=== PATIENT | female | born 1955 | race Caucasian/White ===

== ENCOUNTER → 2019-11-11 11:27 | Outpatient (CLI) | payer OTHER, SELFPAY ==
--- NOTE | 2019-11-11 | DI.MG.S_ITS ---
BILATERAL DIGITAL DIAGNOSTIC MAMMOGRAM 3D/2D POST LUMPECTOMY: 11/11/2019 CLINICAL: Right breast cancer. Comparison is made to exams dated: 10/06/2018 mammogram - [facility], 12/08/2017 mammogram - [facility], 11/03/2017 mammogram - [facility], and 10/08/2017 mammogram - [facility]. There are scattered fibroglandular elements in both breasts. The right breast has post-operative findings. There are benign calcifications in both breasts that are not significantly changed. No significant masses, calcifications, or other findings are seen in either breast. IMPRESSION: There is no mammographic evidence of malignancy. Recommend continued clinical surveillance and 1 year screening mammogram is recommended. This exam was interpreted at Station ID: [id number]. NOTE: For mammograms, a report in lay terms will be sent to the patient. Approximately 15% of breast malignancies will not be visualized mammographically. In the management of a palpable breast mass, a negative mammogram must not discourage biopsy of a clinically suspicious lesion. Electronically Signed By: Cipriano Balderas M.D. aty/:11/11/2019 16:07:45 copy to: PADMAJA DUNN letter sent: Normal Exam ACR BI-RADS Category 2: Benign Finding(s) 3342F
== END ==
PROVIDERS: Referring Provider Internal Medicine; Visit Provider Internal Medicine
DX: C50.911 Malignant neoplasm of unspecified site of right female breast (principal); R92.1 Mammographic calcification found on diagnostic imaging of breast
CPT/HCPCS: 77066; G0279

== ENCOUNTER 2020-10-15 10:03 | Emergency (ER) | payer OTHER, SELFPAY ==
[2020-10-15 10:10] VITALS: BP 139/85; PULSE 72; RESP 14; TEMP 36.8; O2SAT 98
--- NOTE | 2020-10-15 10:52 | ED.SKABFB ---
HPI - Skin/Abscess/Foreign Bdy General Chief complaint: Skin/Abscess/Foreign Body Stated complaint: thinks Right ring finger is Infected Time Seen by Provider: 10/15/20 10:46 Source: patient Mode of arrival: Ambulatory Limitations: no limitations History of Present Illness HPI narrative: Patient complains of right ring finger pain and swelling/abscess. Burned her finger on the microwave apparatus last Thursday. Drainage started yesterday. Patient is right handed. Patient needs tetanus up-to-date. No fever chills otherwise. Injury abscess is on the lateral aspect of the right ring finger on the lateral finger nail edge. Patient did try draining the abscess yesterday with a pin. MD complaint: abscess/boil Related Data Previous Rx's Medication Instructions Recorded cephalexin 500 mg PO QID #28 cap 10/15/20 Allergies Allergy/AdvReac Type Severity Reaction Status Date / Time No Known Drug Allergies Allergy Verified 10/15/20 10:19 Review of Systems Review of Systems Narrative: GENERAL: Denies chills, fatigue, malaise, fever, sweats. MUSCULOSKELETAL: denies muscle or bony pain SKIN: Denies rash, complains of finger abscess NEUROLOGIC: Denies weakness, numbness ROS Unobtainable: All systems reviewed & are unremarkable except as noted in HPI and below Patient History Social History Smoking Status: Never smoker Smoking Status: Never smoker alcohol intake frequency: 0-2 drinks per day Substance Use Type: does not use Exam Narrative Exam Narrative: GENERAL: in no distress, not toxic not dyspneic HEAD: Normocephalic. EXTREMITIES: No gross deformities. Examination right ring finger. There is a paronychia/abscess at the lateral edge of the fingernail. Diffuse erythema at the finger pad. Erythema does extend proximally short of the PIP joint. Full active range of motion of the MCP and PIP joints. Limited flexion at the D IP joint due to swelling. Light touch intact. NEURO: AOx4. SKIN: Warm and dry PSYCH: Not anxious, is cooperative Initial Vital Signs Initial Vital Signs: Vital Signs Temperature 98.2 F 10/15/20 10:10 Pulse Rate 72 10/15/20 10:10 Respiratory Rate 14 10/15/20 10:10 Blood Pressure 139/85 10/15/20 10:10 Pulse Oximetry 98 10/15/20 10:10 Procedures Abscess I/D I&D #1: Site: other (Right ring) Side (if applicable): right Sedation/analgesia: none Local Anesthetic: lidocaine 2% Amount of anesthesia used (mL): 2 Technique: incised with #11 blade Amount of fluid expressed (mL): 1 Irrigation: Yes Packing used?: none Complications: other (No complications. Able flex extend at the MCP PIP and PIP joints. No pus out of drainage. Bleeding controlled.) Course Course Course Narrative: No new issues during course of stay Orders Ordered: Discontinued Medications Cephalexin HCl (Cephalexin 250 Mg Capsule) 500 mg PO NOW ONE Stop: 10/15/20 10:54 Last Admin: 10/15/20 11:30 Dose: 500 mg Documented by: PRANAY Diphtheria/Tetanus/Acell Pertussis (Tet,Diph,Pertuss(Acell),Vac/Pf 0.5 Ml Syringe) 0.5 ml IM .ONCE ONE Stop: 10/15/20 10:54 Last Admin: 10/15/20 11:30 Dose: 0.5 ml Documented by: PRANAY Reevaluation(s) Reevaluation #1: Feels much better after drainage. Desires discharge home Time: 11:27 Vital Signs Vital signs: Vital Signs - 8 hr 10/15/20 10:10 Temperature 98.2 F Pulse Rate 72 Respiratory Rate 14 Blood Pressure 139/85 Pulse Oximetry 98 MDM - Skin/Abscess/Foreign Bdy Differential Diagnosis Differential diagnosis: Likely abscess of skin or subcutaneous tissue MDM Narrative Medical decision making narrative: Appropriate for discharge home. Not toxic. No imaging indicated. Low suspicion for bony injury or foreign body. Discharge Plan Departure Patient Disposition: Home Clinical Impression: Paronychia of finger Qualifiers: Laterality: right Qualified Code(s): L03.011 - Cellulitis of right finger Instructions: DI for Incision and Drainage of a Skin Abscess, DI for Skin Abscess Activity Restrictions/Additional Instructions[place]. Change dressing twice a day with warm soap and water and then topical antibiotic. Return if worse or if any questions or concerns. Prescription has been [facility] Prescriptions: New cephalexin 500 mg capsule 500 mg PO QID Qty: 28 RF: 0 Referrals: Dony Watson MD [Primary Care Provider] -
[2020-10-15 11:25] VITALS: BP 139/79; PULSE 75; RESP 18; O2SAT 97
[2020-10-15] MEDS: LIDOCAINE 2% INJ MDV 20 ML (11:29)
[2020-10-15] MEDS: cephALEXin 250 MG CAPSULE 500 MG PO (11:30)
[2020-10-15] MEDS: TET,DIPH,PERTUSS(ACELL),VAC/PF 0.5 ML SYRINGE IM (11:30)
== END 2020-10-15 11:43 | disposition home or self-care (01) ==
PROVIDERS: Emergency Provider Emergency Medicine; PCP Internal Medicine
DX: L03.011 Cellulitis of right finger (principal); Z23 Encounter for immunization
CPT/HCPCS: 10060; 87070; 87077; 87147; 87186; 87205; 90471; 99283; 90715

== ENCOUNTER → 2020-11-12 11:02 | Outpatient (CLI) | payer OTHER, SELFPAY ==
--- NOTE | 2020-11-12 | DI.MG.S_ITS ---
BILATERAL DIGITAL SCREENING MAMMOGRAM 3D/2D WITH CAD: 11/12/2020 CLINICAL: Routine screening. Breast cancer Family history of breast cancer. Comparison is made to exams dated: 11/11/2019 mammogram - [facility] and 10/06/2018 mammogram - [facility]. There are scattered fibroglandular elements in both breasts. Current study was also evaluated with a Computer Aided Detection (CAD) system. There is a benign calcification in both breasts. There also are benign post operative findings in the right breast. No significant masses, calcifications, or other findings are seen in either breast. There has been no significant interval change. IMPRESSION: BENIGN There is no mammographic evidence of malignancy. A 1 year screening mammogram is recommended. This exam was interpreted at Station ID: [id number]. NOTE: For mammograms, a report in lay terms will be sent to the patient. Approximately 15% of breast malignancies will not be visualized mammographically. In the management of a palpable breast mass, a negative mammogram must not discourage biopsy of a clinically suspicious lesion. Electronically Signed By: Dony bradley/yonatan:11/12/2020 11:47:11 copy to: PADMAJA DUNN letter sent: Normal Exam ACR BI-RADS Category 2: Benign Finding(s) 3342F
== END ==
PROVIDERS: PCP Family Medicine; Referring Provider Internal Medicine; Visit Provider Internal Medicine
DX: Z12.31 Encounter for screening mammogram for malignant neoplasm of breast (principal); Z85.3 Personal history of malignant neoplasm of breast; Z80.3 Family history of malignant neoplasm of breast
CPT/HCPCS: 77063; 77067

== ENCOUNTER 2021-09-12 11:00 | Emergency (ER) | payer OTHER, SELFPAY ==
[2021-09-12 11:09] VITALS: BP 162/85; PULSE 96; RESP 18; TEMP 37.1; O2SAT 97; BMI 39.4
--- NOTE | 2021-09-12 12:59 | ED.ALLEREA ---
HPI - Allergic Reaction General Chief complaint: Allergic Reaction Stated complaint: Left side of face is swollen Time Seen by Provider: 09/12/21 12:59 Source: patient Mode of arrival: Ambulatory History of Present Illness HPI narrative: Patient is a 65-year-old female with no past medical history who presents today left facial numbness and swelling and new left facial droop. She said this morning she woke up and just felt like her left face was swollen she had a pimple that she popped yesterday inside her left nostril she said she got gross green drainage from it. He has not had any fever or chills. No neck pain is no headaches. she has some mild erythema just inferior her left eye. She has no visual changes. He denies any chest pain shortness breath palpitations. She has no focal deficits besides her face. She has no numbness tingling or weakness. She has no prior history of CVA or CAD. She denies anything new products. She has no difficulty breathing no tongue swelling. Related Data Previous Rx's Medication Instructions Recorded cephalexin 500 mg capsule 500 mg PO QID #28 cap 10/15/20 sulfamethoxazole 800 1 tab PO BID 10 Days #20 tab 09/12/21 mg-trimethoprim 160 mg tablet (Bactrim DS) sulfamethoxazole 800 1 tab PO BID 10 Days #20 tab 09/12/21 mg-trimethoprim 160 mg tablet (Bactrim DS) Allergies Allergy/AdvReac Type Severity Reaction Status Date / Time No Known Drug Allergies Allergy Verified 09/12/21 11:30 Review of Systems Review of Systems Narrative: GENERAL: Denies chills, fatigue, malaise, fever, sweats, travel HEENT: Denies sinus pain, ear pain, sore throat, difficulty swallowing, neck pain RESPIRATORY: Denies dyspnea, cough, wheezing, hemoptysis, sputum. CARDIOVASCULAR: Denies chest pain, palpitations, orthopnea, edema GASTROINTESTINAL: Denies nausea, vomiting, abdominal pain, diarrhea, constipation, melena. : Denies dysuria, frequency, incontinence, hematuria, urinary retention, flank pain. MUSCULOSKELETAL: Denies weakness, joint pain, or bony pain SKIN: See HPI NEUROLOGIC: See HPI PSYCHIATRIC: No concerning psychosocial issues. 12 point review of systems is negative except for those stated above and HPI Patient History Social History Smoking Status: Never smoker Smoking Status: Never smoker alcohol intake frequency: holidays/special occasions only Substance Use Type: does not use Exam Initial Vital Signs Initial Vital Signs: Vital Signs Temperature 98.7 F 09/12/21 11:09 Pulse Rate 96 H 09/12/21 11:09 Respiratory Rate 18 09/12/21 11:09 Blood Pressure 162/85 H 09/12/21 11:09 Pulse Oximetry 97 09/12/21 11:09 GENERAL: Alert well-appearing 65-year-old female and in no acute distress. HEENT: Head atraumatic,EOMI, pupils reactive, left facial droop she is able to close her eyes completely and wrinkle her forehead NOSE: Anterior right septal erythema very tender to the touch no induration CARDIOVASCULAR: Regular rate and rhythm without murmurs, rubs or gallops. RESPIRATORY: Breath sounds equal bilaterally, no wheezes rales or rhonchi. ABDOMEN: Soft, nontender. Normoactive bowel sounds all 4 quadrants. No guarding or rebound. EXTREMITIES: Normal range of motion, no clubbing or edema. Neurovascularly intact NEUROLOGICAL: Alert and oriented x4.Normal gait and speech. Cranial nerves II through XII grossly intact. Good [id number]-[id number], good jbkf-ff-pvvf, strength equal bilaterally, no dysarthria or aphasia, sensation in tact to soft touch bilaterally, no visual changes, left facial droop able to close eyes completely wrinkling of both sides of for head SKIN: Warm, dry, no laceration, no petechiae, no rashes or lesions. Course Orders Ordered: ED Orders 09/12/21 13:09 CT head/brain wo con Stat Urine Drug Screen, Rapid Stat EKG-12 Lead Stat 09/12/21 13:19 Complete Blood Count AUTO DIFF Stat Comprehensive Metabolic Panel Stat Troponin & CK Cardiac Panel Stat Vital Signs Vital signs: Vital Signs - 8 hr 09/12/21 11:09 09/12/21 13:58 09/12/21 13:59 Temperature 98.7 F Pulse Rate 96 H 85 85 Respiratory Rate 18 Blood Pressure 162/85 H 129/76 Pulse Oximetry 97 94 98 09/12/21 14:00 Temperature Pulse Rate 85 Respiratory Rate Blood Pressure Pulse Oximetry 98 MDM - Allergic Reaction Lab Data Result diagrams: 09/12/21 13:19 09/12/21 13:19 Labs: Lab Results 09/12/21 09/12/21 Range/Units 13:19 13:19 WBC 12.2 H (4.5-11.0) X10^3/uL RBC 3.97 L (4.0-5.2) X10^6/uL Hgb 11.4 L (12.0-16.0) g/dL Hct 34.5 L (36-46) % MCV 86.9 (80-100) fL MCH 28.7 (26-34) PG MCHC 33.1 (30-36) % RDW 14.3 (11.6-14.8) % Plt Count 213 (150-400) X10^3/uL Neut % (Auto) 78.1 H (50-75) % Lymph % (Auto) 11.9 L (25-40) % Orange % (Auto) 7.3 (3-14) % Eos % (Auto) 2.2 (2-4) % Baso % (Auto) 0.5 (0-2) % Neut # (Auto) 9500 H (3128-0179) /uL Lymph # (Auto) 1500 (5249-1849) /uL Orange # (Auto) 900 (0-900) /uL Eos # (Auto) 300 (0-450) /uL Baso # (Auto) 100 (0-100) /uL Sodium 138 (137-145) mmol/L Potassium 4.2 (3.4-5.1) mmol/L Chloride 102 (98-107) mmol/L Carbon Dioxide 32 (22-32) mmol/L BUN 17 (7-17) mg/dL Creatinine 0.95 (0.52-1.04) mg/dL Estimated GFR 59.4 L (>60) mL/min BUN/Creatinine Ratio 17.9 (6-22) Glucose 86 (80-110) mg/dL Calcium 9.3 (8.4-10.2) mg/dL Total Bilirubin 0.5 (0.2-1.3) mg/dL AST 24 (14-36) IU/L ALT 17 (<35) IU/L Alkaline Phosphatase 59 (38-126) U/L Total Creatine Kinase 80 (30-135) U/L CK-MB (CK-2) TNP CK-MB (CK-2) Rel Index TNP Troponin I < 0.012 (0.01-0.034) ng/mL Total Protein 6.8 (6.3-8.2) g/dL Albumin 3.8 (3.5-5.0) g/dL Globulin 3.0 (1.7-4.1) g/dL Albumin/Globulin Ratio 1.3 (1.0-2.8) Urine Dip Bedside Urine Glucose Negative Bedside Urine Bilirubin - Negative Bedside Urine Ketone - Negative Urine Specific [place] 1.015 Bedside Urine Occult Blood - Negative Bedside Urine pH 6.5 Bedside Urine Protein - Negative Bedside Urine Urobilinogen +/- 1mg Bedside Urine Nitrite - Negative Bedside Urine Leukocytes - Negative Esterase Imaging Data CT scan - head: Radiologist's Impression: PROCEDURE:? CT HEAD/BRAIN WO CON ? INDICATIONS:? left facial droop ? TECHNIQUE:? Noncontrast 4.5 mm thick angled axial sections acquired from the foramen magnum to the vertex, with coronal and sagittal reformats.? For radiation dose reduction, the following was used:? automated exposure control, adjustment of mA and/or kV according to patient size.? ? COMPARISON:? None. ? FINDINGS:? Image quality:? Excellent.? ? CSF spaces:? Basal cisterns are patent.? No extra-axial fluid collections.? Ventricles are normal in size and shape.? ? Brain:? No midline shift.? No intracranial masses or hemorrhage.? Goldstein-white matter interface is normal.? ? Skull and face:? Calvarium and visualized facial bones are intact, without suspicious lesions.? ? Sinuses:? Visualized sinuses and mastoids are clear.? ? IMPRESSION:? No acute intracranial abnormality. ? ? ECG Data Interpretation: Rhythm rate 86 NC interval 150 QRS [address] changes T-wave inversion MDM Narrative Medical decision making narrative: She does have left nasal abscess near the septum. She does not have any really surrounding erythema or induration. She has obvious left facial droop. Possible Jama's palsy but she is able to close eyes and wrinkle forehead. Possible stroke or TIA however she has no other focal deficits except mild left facial droop. Also possible infection she does have mild leukocytosis of 12 and of probable source of the nose. Unlikely allergic reaction. At this time patient overall appears well. Discussed with her warm compresses will start her on antibiotics and strict return precautions. Discharge Plan Departure Patient Disposition: Home Clinical Impression: Abscess of nasal septum Instructions: DI for Skin Abscess Activity Restrictions/Additional Instructions: *You have been diagnosed with abscess of nose *What to do: At this time continue warm compresses monitor very closely. If you should have any worsening pain swelling redness fever return to the emergency department immediately *Continue to take medications as directed Bactrim 1 tablet twice a day for 10 days--> SENT TO [facility] *Follow up with your primary care provider in 2-3 days or call [phone] *Return to ER if you should have any of the above symptoms also including numbness tingling weakness worsening facial droop or any new, worsening or concerning symptoms Prescriptions: New sulfamethoxazole-trimethoprim [Bactrim DS] 800-160 mg tablet 1 tab PO BID 10 Days Qty: 20 0RF sulfamethoxazole-trimethoprim [Bactrim DS] 800-160 mg tablet 1 tab PO BID 10 Days Qty: 20 0RF No Action cephalexin 500 mg capsule 500 mg PO QID Qty: 28 0RF Referrals: Maren Ramirez DO [Primary Care Provider] -
--- NOTE | 2021-09-12 13:09 | DI.CT.S_ITS ---
PROCEDURE: CT HEAD/BRAIN WO CON INDICATIONS: left facial droop TECHNIQUE: Noncontrast 4.5 mm thick angled axial sections acquired from the foramen magnum to the vertex, with coronal and sagittal reformats. For radiation dose reduction, the following was used: automated exposure control, adjustment of mA and/or kV according to patient size. COMPARISON: None. FINDINGS: Image quality: Excellent. CSF spaces: Basal cisterns are patent. No extra-axial fluid collections. Ventricles are normal in size and shape. Brain: No midline shift. No intracranial masses or hemorrhage. Goldstein-white matter interface is normal. Skull and face: Calvarium and visualized facial bones are intact, without suspicious lesions. Sinuses: Visualized sinuses and mastoids are clear. IMPRESSION: No acute intracranial abnormality. Dictated by: Elliott Alba M.D. on 09/12/2021 at 13:45 Approved by: Elliott Alba M.D. on 09/12/2021 at 13:47
[2021-09-12 13:51] LABS: Add Manual Diff / Slide Review NO; Basophils Absolute Auto 100 /uL (0-100); Basophils Percent Auto 0.5 % (0-2); Eosinophils Absolute Auto 300 /uL (0-450); Eosinophils Percent Auto 2.2 % (2-4); Hematocrit 34.5 % (36-46); Hemoglobin 11.4 g/dL (12.0-16.0); Lymphocytes Absolute Auto 1500 /uL (1100-4500); Lymphocytes Percent Auto 11.9 % (25-40); Mean Corpuscular HGB Conc 33.1 % (30-36); Mean Corpuscular Hemoglobin 28.7 PG (26-34); Mean Corpuscular Volume 86.9 fL (80-100); Monocytes Absolute Auto 900 /uL (0-900); Monocytes Percent Auto 7.3 % (3-14); Neutrophils Absolute Auto 9500 /uL (1500-7000); Neutrophils Percent Auto 78.1 % (50-75); Platelet Count 213 X10^3/uL (150-400); Red Blood Cell Count 3.97 X10^6/uL (4.0-5.2); Red Cell Distribution Width 14.3 % (11.6-14.8); White Blood Cell Count 12.2 X10^3/uL (4.5-11.0)
[2021-09-12 13:58] VITALS: PULSE 85; O2SAT 94
[2021-09-12 13:59] VITALS: BP 129/76; PULSE 85; O2SAT 98
[2021-09-12 14:00] VITALS: PULSE 85; O2SAT 98
[2021-09-12 14:20] LABS: Alanine Aminotransferase 17 IU/L (<35); Albumin 3.8 g/dL (3.5-5.0); Albumin Globulin Ratio 1.3 (1.0-2.8); Alkaline Phosphatase 59 U/L (38-126); Aspartate Aminotransferase 24 IU/L (14-36); BUN Creatinine Ratio 17.9 (6-22); Bilirubin Total 0.5 mg/dL (0.2-1.3); Blood Urea Nitrogen 17 mg/dL (7-17); Calcium 9.3 mg/dL (8.4-10.2); Carbon Dioxide 32 mmol/L (22-32); Chloride 102 mmol/L (98-107); Creatine Kinase 80 U/L (30-135); Estimated Glomerular Filt Rate 59.4 mL/min (>60); Glucose 86 mg/dL (80-110); HEMOLYSIS < 15 (0-50); Potassium 4.2 mmol/L (3.4-5.1); Sodium 138 mmol/L (137-145); Total Protein 6.8 g/dL (6.3-8.2)
[2021-09-12 14:31] LABS: Troponin I < 0.012 ng/mL (0.01-0.034)
== END 2021-09-12 15:08 | disposition home or self-care (01) ==
PROVIDERS: Emergency Provider Emergency Medicine; PCP Family Medicine
DX: J34.0 Abscess, furuncle and carbuncle of nose (principal)
CPT/HCPCS: 36415; 70450; 80053; 81003; 82550; 84484; 85025; 93005; 93010; 99284

== ENCOUNTER → 2021-11-13 11:10 | Outpatient (CLI) | payer OTHER, SELFPAY ==
--- NOTE | 2021-11-13 | DI.MG.S_ITS ---
BILATERAL DIGITAL SCREENING MAMMOGRAM 3D/2D WITH CAD: 11/13/2021 CLINICAL: Routine screening. Personal history of right breast cancer. Family history of breast cancer. Comparison is made to exams dated: 11/12/2020 mammogram, 11/11/2019 mammogram - [facility], and 10/06/2018 mammogram - [facility]. There are scattered fibroglandular elements in both breasts. Current study was also evaluated with a Computer Aided Detection (CAD) system. There is a benign calcification in both breasts. There also are benign post operative findings in the right breast. No significant masses, calcifications, or other findings are seen in either breast. There has been no significant interval change. IMPRESSION: BENIGN There is no mammographic evidence of malignancy. A 1 year screening mammogram is recommended. This exam was interpreted at Station ID: [id number]. NOTE: For mammograms, a report in lay terms will be sent to the patient. Approximately 15% of breast malignancies will not be visualized mammographically. In the management of a palpable breast mass, a negative mammogram must not discourage biopsy of a clinically suspicious lesion. Electronically Signed By: Elliott Alba acr/penrad:11/14/2021 08:45:56 copy to: PADMAJA DUNN letter sent: Normal Exam ACR BI-RADS Category 2: Benign Finding(s) 3342F
== END ==
PROVIDERS: PCP Family Medicine; Referring Provider Internal Medicine; Visit Provider Internal Medicine
DX: Z12.31 Encounter for screening mammogram for malignant neoplasm of breast (principal); Z85.3 Personal history of malignant neoplasm of breast; Z80.3 Family history of malignant neoplasm of breast
CPT/HCPCS: 77063; 77067

== ENCOUNTER 2022-10-30 16:51 | Emergency (ER) | payer MEDICARE, OTHER, SELFPAY ==
[2022-10-30 16:59] VITALS: BP 133/79; PULSE 103; RESP 18; TEMP 37.3; O2SAT 94; BMI 41.1
--- NOTE | 2022-10-30 18:48 | ED_ITS ---
HPI - Eye Problem General Chief complaint: Eye Problems Stated complaint: lt eye pain Time Seen by Provider: 10/30/22 17:50 Source: patient Mode of arrival: Ambulatory History of Present Illness HPI Narrative: Patient is a 67-year-old female history of hypertension who wears contacts presenting today with left eye irritation and contact problem. She reports that she was sitting and felt like her contact was a little bit off but her finger in to move her contact around contact got dislodged eye was irritated. She then thought that she found the contact and was moving something around. She no longer has any eye irritation she is not sure that the contact actually came out. She is having blurry vision. No discharge. Related Data Previous Rx's Medication Instructions Recorded cephalexin 500 mg capsule 500 mg PO QID #28 caps 10/15/20 Allergies Allergy/AdvReac Type Severity Reaction Status Date / Time No Known Drug Allergies Allergy Verified 10/30/22 17:05 Review of Systems Review of Systems ROS Unobtainable: All systems reviewed & are unremarkable except as noted in HPI and below Patient History Social History Smoking Status: Never smoker Smoking Status: Never smoker alcohol intake frequency: 0-2 drinks per day Substance Use Type: does not use Exam Initial Vital Signs Initial Vital Signs: Vital Signs Temperature 99.2 F 10/30/22 16:59 Pulse Rate 103 H 10/30/22 16:59 Respiratory Rate 18 10/30/22 16:59 Blood Pressure 133/79 10/30/22 16:59 Pulse Oximetry 94 10/30/22 16:59 Oxygen Delivery Method Room Air 10/30/22 16:59 GENERAL: Well-appearing, well-nourished and in no acute distress. EYE: EIMI, TONG, left eye is stained with fluorescein no dye uptake no foreign body. Eyelid is inverted for exam. No foreign body is seen. CARDIOVASCULAR: peripheral pulses in tact, cap refill <2 sec RESPIRATORY: No respiratory distress, speaks in full sentences without diffi culty EXTREMITIES: Normal range of motion, no clubbing or edema. Neurovascularly intact NEUROLOGICAL: Cranial nerves II through XII grossly intact. Normal gait and speech. SKIN: Warm, dry, no petechiae, no rashes or lesions. Course Orders Ordered: Discontinued Medications Fluorescein Sodium (Fluorescein 1 Mg Strip) 1 mg EYE-BOTH NOW ONE Stop: 10/30/22 18:48 Last Admin: 10/30/22 19:29 Dose: 1 mg Documented By: MARIA LUISA Proparacaine HCl (Proparacaine 0.5% Ophth Ginger) 1 drops EYE-BOTH NOW ONE Stop: 10/30/22 18:48 Last Admin: 10/30/22 19:04 Dose: 1 box Documented By: AP Vital Signs Vital signs: Vital Signs - 8 hr 10/30/22 16:59 Temperature 99.2 F Pulse Rate 103 H Respiratory Rate 18 Blood Pressure 133/79 Pulse Oximetry 94 Oxygen Delivery Method Room Air MDM - Eye Problem MDM Narrative Medical decision making narrative: Patient is 67-year-old female who presents with left eye pain and irritation. Probable contact dislodgement. I suspect that what she saw was sliding around her eye was probably the contact. I do not see the contact or any other foreign body in her eye. There is no dye uptake or evidence of corneal abrasion. She is reading a book currently with mono vision. She just wanted to make sure contact was out and and there was nothing further. Discharge Plan Departure Patient Disposition: Home Clinical Impression: Acute left eye pain Instructions: DI for Eye Pain Activity Restrictions/Additional Instructions: *You have been diagnosed with left eye pain *What to do: At this time I suspect that the contact has fallen out. I do not see it in your I do not see an abrasion. Keep contact out for tonight may try and wear contacts tomorrow. *Continue to take medications as directed *Follow up with your primary care provider in 2-3 days or call [phone] *Return to ER if you should have increasing pain irritation drainage or any new, worsening or concerning symptoms Prescriptions: No Action cephalexin 500 mg capsule 500 mg PO QID Qty: 28 0RF Referrals: Maren Ramirez DO [Primary Care Provider] - Stand Alone Forms: Patient Portal/API
[2022-10-30] MEDS: PROPARACAINE 0.5% OPHTH SOL 1 DROPS EYE-BOTH (19:04)
[2022-10-30] MEDS: FLUORESCEIN 1 MG STRIP EYE-BOTH (19:29)
== END 2022-10-30 19:30 | disposition home or self-care (01) ==
PROVIDERS: Emergency Provider Emergency Medicine; PCP Family Medicine
DX: H57.12 Ocular pain, left eye (principal)
CPT/HCPCS: 99282

== ENCOUNTER → 2022-11-14 06:55 | Outpatient (CLI) | payer MEDICARE, OTHER, SELFPAY ==
--- NOTE | 2022-11-14 | DI.MG.S_ITS ---
BILATERAL DIGITAL SCREENING MAMMOGRAM 3D/2D WITH CAD: 11/14/2022 CLINICAL: Routine screening. Personal history of right breast cancer. Family history of breast cancer. Comparison is made to exams dated: 11/13/2021 mammogram, 11/12/2020 mammogram, and 11/11/2019 mammogram - [facility]. There are scattered areas of fibroglandular density in both breasts (category b / 25%-50% glandular tissue). Current study was also evaluated with a Computer Aided Detection (CAD) system. There is a benign calcification in both breasts. There also are benign post operative findings in the right breast. No significant masses, calcifications, or other findings are seen in either breast. There has been no significant interval change. IMPRESSION: BENIGN There is no mammographic evidence of malignancy. A 1 year screening mammogram is recommended. This exam was interpreted at Station ID: [id number]. NOTE: For mammograms, a report in lay terms will be sent to the patient. Approximately 15% of breast malignancies will not be visualized mammographically. In the management of a palpable breast mass, a negative mammogram must not discourage biopsy of a clinically suspicious lesion. Electronically Signed By: Mariela davis/yonatan:11/14/2022 12:58:35 copy to: PADMAJA DUNN letter sent: Normal Exam ACR BI-RADS Category 2: Benign Finding(s) 3342F
== END ==
PROVIDERS: PCP Family Medicine; Referring Provider Internal Medicine; Visit Provider Internal Medicine
DX: Z12.31 Encounter for screening mammogram for malignant neoplasm of breast (principal); Z85.3 Personal history of malignant neoplasm of breast; Z80.3 Family history of malignant neoplasm of breast
CPT/HCPCS: 77063; 77067

== ENCOUNTER 2023-10-18 16:14 | Emergency (ER) | payer MEDICARE, OTHER, SELFPAY ==
[2023-10-18 16:16] VITALS: BP 123/82; PULSE 92; RESP 18; TEMP 36.6; O2SAT 96; BMI 41.1
--- NOTE | 2023-10-18 17:02 | PC.NURSE ---
walked into trunk and hit side of head by eye and then flew to [place] and got here on the and noticed she was having blurry vision. She googled her symptoms and read about having a retinal detachment. SHe came to the ER today to make sure she isnt having a retinal detachment. She denies vision darkness or floater and has no other visual issues.
[2023-10-18] MEDS: PROPARACAINE 0.5% OPHTH SOL 1 DROPS EYE-BOTH (17:20)
[2023-10-18] MEDS: FLUORESCEIN 1 MG STRIP EYE-BOTH (17:20)
--- NOTE | 2023-10-18 17:43 | ED.EYEPROB ---
HPI - Eye Problem General Chief complaint: Eye Problems Stated complaint: poss detached retina rt eye Time Seen by Provider: 10/18/23 16:41 Source: patient Mode of arrival: Ambulatory History of Present Illness HPI Narrative: 68-year-old female arrives with concern for detached retina, month ago she your right eye on the trunk of the vehicle she describes hitting the orbit and not the eye itself about a month ago. She did not notice any changes until she recently traveled back to the area and about a week ago patient noticed some decreased vision in her right eye which is her good eye. Patient does wear contacts. She has seen her eye doctor in the past year. She has set up an appointment 10 days from now but was concerned about possible detached retina and presents. She denies any drainage. No pain. No irritation. No other recent trauma. Patient states no other new changes. Related Data Previous Rx's Medication Instructions Recorded cephalexin 500 mg capsule 500 mg PO QID #28 caps 10/15/20 Allergies Allergy/AdvReac Type Severity Reaction Status Date / Time No Known Drug Allergies Allergy Verified 10/30/22 17:05 Review of Systems Review of Systems ROS Unobtainable: All systems reviewed & are unremarkable except as noted in HPI and below Patient History Social History Smoking Status: Never smoker Smoking Status: Never smoker alcohol intake frequency: 0-2 drinks per day Alcohol type: wine Substance Use Type: does not use Exam Narrative Exam Narrative: GENERAL: Alert and oriented x three, well-appearing female in mild distress. HEENT: Head normocephalic, atraumatic, EOMI, pupils reactive, face symmetric, moist mucous membranes Visual acuity: right [20/50], left [20/40] without correction. IOP: Right 22 mm Hg, Left 16 mm Hg General: no globe trauma Eyelids: normal inspection, eyelids everted for exam on bilateral. Conjunctiva/Sclera: normal inspection Corneas: normal inspection, examined with fluroscein on right, patient had some mild punctate uptake over the sclera but not the rest of the eye. None over the cornea. EOM: intact, no palsy/entrapment Pupils: PERRL, normal accomadation, pupil normal Anterior Chambers: normal inspection, no hypema Posterior: normal fundoscopic on bilaterally although nondilated exam somewhat difficult. NECK: Supple, full range of motion CARDIOVASCULAR: Regular rate and rhythm without murmurs, rubs or gallops. RESPIRATORY: Breath sounds equal bilaterally, no wheezes rales or rhonchi. ABDOMEN: Soft, nontender. Normoactive bowel sounds all 4 quadrants. No guarding or rebound, rigidity, no mass : No CVA tenderness EXTREMITIES: Normal range of motion, no clubbing or edema. Neurovascularly intact NEUROLOGICAL: Cranial nerves II through XII grossly intact. Moving all extremities SKIN: Warm, dry, no petechiae, no rashes or lesions. Initial Vital Signs Initial Vital Signs: Vital Signs Temperature 97.8 F 10/18/23 16:16 Pulse Rate 92 H 10/18/23 16:16 Respiratory Rate 18 10/18/23 16:16 Blood Pressure 123/82 10/18/23 16:16 Pulse Oximetry 96 10/18/23 16:16 Oxygen Delivery Method Room Air 10/18/23 16:16 Course Orders Ordered: Discontinued Medications Fluorescein Sodium (Fluorescein 1 Mg Strip) 1 mg EYE-BOTH NOW ONE Stop: 10/18/23 17:08 Last Admin: 10/18/23 17:20 Dose: 1 mg Documented By: TAHIR Proparacaine HCl (Proparacaine 0.5% Ophth Ginger) 1 drops EYE-BOTH NOW ONE Stop: 10/18/23 17:08 Last Admin: 10/18/23 17:20 Dose: 1 drop Documented By: TAHIR Vital Signs Vital signs: Vital Signs - 8 hr 10/18/23 16:16 10/18/23 18:04 Temperature 97.8 F Pulse Rate 92 H 76 Respiratory Rate 18 14 Blood Pressure 123/82 124/88 Pulse Oximetry 96 94 Oxygen Delivery Method Room Air Room Air MDM - Eye Problem MDM Narrative Medical decision making narrative: 68-year-old female that does have a little bit of decreased vision change on the right with visual acuity. Has some slight punctate uptake on the right and interocular pressure was 2216 on the right for comparison. Eye exam does not show any other acute changes. Asked patient to follow up with Ophthalmology tomorrow for recheck. She has had least several days of changes that have not been worsening. Patient states she has a own rehabilitation tech that she can possibly be seen tomorrow but if not she will use resources to be seen tomorrow locally. Discharge Plan Departure Patient Disposition: Home Clinical Impression: Alteration in vision Activity Restrictions/Additional Instructions: Follow up with Ophthalmology tomorrow for a better evaluation of the posterior eye. If you are rehabilitation tech can not see you tomorrow, you can follow up with the contact provided below. Please call 1st thing in the morning to set up an appointment. Your intra-ocular pressure on the right was slightly elevated at 22 compared to the left at 16. Please return for sudden or worsening vision changes, new drainage, severe pain, vomiting or other new or concerning changes. Prescriptions: No Action cephalexin 500 mg capsule 500 mg PO QID Qty: 28 0RF Referrals: Miguel Olivarez MD [Physician] - Maren Ramirez DO [Primary Care Provider] - Stand Alone Forms: Patient Portal/API
[2023-10-18 18:04] VITALS: BP 124/88; PULSE 76; RESP 14; O2SAT 94
== END 2023-10-18 18:06 | disposition home or self-care (01) ==
PROVIDERS: Emergency Provider Emergency Medicine; PCP Family Medicine
DX: H54.7 Unspecified visual loss (principal); W22.8XXA Striking against or struck by other objects, initial encounter
CPT/HCPCS: 99282

== ENCOUNTER → 2023-11-18 07:32 | Outpatient (CLI) | payer MEDICARE, OTHER, SELFPAY ==
--- NOTE | 2023-11-18 07:34 | DI.MG.S_ITS ---
BILATERAL DIGITAL SCREENING MAMMOGRAM 3D/2D WITH CAD: 11/18/2023 CLINICAL: Routine screening. Personal history of right breast cancer. Family history of breast cancer. Comparison is made to exams dated: 11/14/2022 mammogram, 11/13/2021 mammogram, and 11/12/2020 mammogram - [facility]. There are scattered areas of fibroglandular density in both breasts (category b / 25%-50% glandular tissue). Current study was also evaluated with a Computer Aided Detection (CAD) system. There are benign post operative findings in the right breast. There is a focal asymmetry in the right breast at 9 o'clock anterior depth. No other significant masses, calcifications, or other findings are seen in either breast. IMPRESSION: INCOMPLETE: NEEDS ADDITIONAL IMAGING EVALUATION The focal asymmetry in the right breast is indeterminate. A diagnostic mammogram and ultrasound is recommended. This exam was interpreted at Station ID: [id number]. NOTE: For mammograms, a report in lay terms will be sent to the patient. Approximately 15% of breast malignancies will not be visualized mammographically. In the management of a palpable breast mass, a negative mammogram must not discourage biopsy of a clinically suspicious lesion. Electronically Signed By: Amberly Collins M.D., Ph.D. eb/:11/18/2023 13:31:35 copy to: PADMAJA DUNN letter sent: Additional Imaging Needed ACR BI-RADS Category 0: Incomplete [id number]
== END ==
PROVIDERS: PCP Physician Assistant; Referring Provider Physician Assistant; Visit Provider Physician Assistant
DX: Z12.31 Encounter for screening mammogram for malignant neoplasm of breast (principal); Z85.3 Personal history of malignant neoplasm of breast; Z80.3 Family history of malignant neoplasm of breast; R92.323 Mammographic fibroglandular density, bilateral breasts
CPT/HCPCS: 77063; 77067

== ENCOUNTER → 2023-12-25 11:39 | Outpatient (CLI) | payer MEDICARE, OTHER, SELFPAY ==
--- NOTE | 2023-12-25 11:40 | DI.MG.S_ITS ---
UNILATERAL RIGHT DIGITAL DIAGNOSTIC MAMMOGRAM 3D/2D WITH ADDITIONAL VIEWS: 12/25/2023 CLINICAL: Additional evaluation requested from prior study. Comparison is made to exams dated: 11/18/2023 mammogram, 11/14/2022 mammogram, and 11/13/2021 mammogram - [facility]. There are scattered areas of fibroglandular density in the right breast (category b / 25%-50% glandular tissue). There is a focal asymmetry in the right breast at 8 o'clock middle depth. This is seen in additional views. No other significant masses or calcifications are seen in the breast. IMPRESSION: INCOMPLETE: NEEDS ADDITIONAL IMAGING EVALUATION The focal asymmetry in the right breast is indeterminate. A targeted ultrasound of the right breast is recommended and will be performed immediately following this exam. This exam was interpreted at Station ID: [id number]. NOTE: For mammograms, a report in lay terms will be sent to the patient. Approximately 15% of breast malignancies will not be visualized mammographically. In the management of a palpable breast mass, a negative mammogram must not discourage biopsy of a clinically suspicious lesion. Electronically Signed By: Mellissa Rios M.D. lk/:12/25/2023 12:40:56 copy to: PADMAJA DUNN ACR BI-RADS Category 0: Incomplete [id number]
--- NOTE | 2023-12-25 11:41 | DI.US.S_ITS ---
ULTRASOUND OF RIGHT BREAST: 12/25/2023 CLINICAL: Follow up from addtional views. Comparison is made to exams dated: 12/25/2023 mammogram, 11/18/2023 mammogram, 11/14/2022 mammogram, 11/13/2021 mammogram, and 11/12/2020 mammogram - [facility]. Color flow and real-time ultrasound of the right breast were performed on the areas of interest. There is a 0.5 cm x 0.7 cm x 0.8 cm irregular mass in the right breast at 9 o'clock middle depth. This irregular mass is hypoechoic with internal echoes. This correlates with mammography findings. Color flow imaging demonstrates that there is an adjacent vascularity. IMPRESSION: SUSPICIOUS OF MALIGNANCY The 0.5 cm x 0.7 cm x 0.8 cm irregular mass in the right breast is at a low suspicion for malignancy. An ultrasound guided biopsy is recommended. This exam was interpreted at Station ID: [id number]. SUMMARY: This was discussed with the patient by the radiologist Dr. Vega at the time of the exam. Electronically Signed By: Mellissa yeung/:12/25/2023 13:20:56 copy to: PADMAJA DUNN letter sent: Biopsy Required Ultrasound BI-RADS: 4a Low suspicion for malignancy
== END ==
LOC: MAMMO 11:40
PROVIDERS: PCP Physician Assistant; Referring Provider Physician Assistant; Visit Provider Physician Assistant
DX: R92.8 Other abnormal and inconclusive findings on diagnostic imaging of breast (principal); N63.15 Unspecified lump in the right breast, overlapping quadrants; R92.321 Mammographic fibroglandular density, right breast
CPT/HCPCS: 76642; 77065; G0279

== ENCOUNTER → 2024-02-04 08:30 | Outpatient (CLI) | payer MEDICARE, OTHER, SELFPAY ==
--- NOTE | 2024-02-04 08:32 | DI.US.S_ITS ---
PROCEDURE: US BX BREAST PERC W VAC DEVICE COMPARISON: None. INDICATIONS: RIGHT BREAST MASS FINDINGS: Successful biopsy of a mass within the right breast at 9:00. IMPRESSION: Successful biopsy of a mass within the right breast at 9:00. Dictated by: Patrick Juarez M.D. on 02/04/2024 at 12:40 Approved by: Patrick Juarez M.D. on 02/04/2024 at 12:44
--- NOTE | 2024-02-04 08:33 | DI.MG.S_ITS ---
UNILATERAL RIGHT DIGITAL DIAGNOSTIC MAMMOGRAM 3D/2D POST-PROCEDURE IMAGING FOR MARKER PLACEMENT: 02/04/2024 CLINICAL: Right breast Mass. Comparison is made to exams dated: 12/25/2023 mammogram, 11/18/2023 mammogram, and 11/14/2022 mammogram - [facility]. There are scattered areas of fibroglandular density in the right breast (category b / 25%-50% glandular tissue). There is a marker clip in the appropriate position in the right breast at 9 o'clock anterior depth. This marker clip placement is at the biopsy site. IMPRESSION: POST PROCEDURE MAMMOGRAM FOR MARKER PLACEMENT There was a successful marker clip placement in the right breast anterior depth. This exam was interpreted at Station ID: [id number]. NOTE: For mammograms, a report in lay terms will be sent to the patient. Approximately 15% of breast malignancies will not be visualized mammographically. In the management of a palpable breast mass, a negative mammogram must not discourage biopsy of a clinically suspicious lesion. Electronically Signed By: Mariela davis/yonatan:02/04/2024 10:14:01 copy to: PADMAJA DUNN ACR BI-RADS Category Post-procedure mammogram for marker placement
--- NOTE | 2024-02-04 10:24 | PATH_ITS ---
[facility] Accession Number: [id number] No. of containers..01 Tissue . 01 Material submitted: . breast - RIGHT BREAST 900 4 CM FN . 01 Diagnosis: A. RIGHT BREAST MASS, 9 O'CLOCK, 4 CM FROM THE NIPPLE, BIOPSY: Fragments of cyst wall in background of apocrine metaplasia, sclerosing adenosis, and focal usual ductal hyperplasia. Focal microcalcifications are also seen. Negative for atypia, carcinoma in situ, and malignancy. MRV 02/09/2024 1628 Local . 01 Electronically signed: . Ginny Mendiola MD, Pathologist NPI- [id number] . 01 Gross description: . Received in formalin with two identifiers and no site on jar, are multiple yellow-fish soft tissue fragments admixed with hemorrhagic material aggregating to 2.1 x 2.0 x 0.3 cm. Inked green, filtered, and submitted entirely in cassette A1. . The specimen was removed on 02/04/2024 at 1024 hours, time in formalin not provided, cold ischemic time cannot be calculated, total fixation time is approximately 39 hours. ([id number]) /ELIESER 02/05/2024 0915 Local . 01 Microscopic: . p63 and smooth muscle myosin immunostains are performed on block A in order to evaluate an area of interest. There is complete retention of myoepithelial markers, in support of no evidence of carcinoma. Deeper levels are also examined. . * This test was developed and its performance characteristics determined by [employer]. It has not been cleared or approved by the U.S. Food and Drug Administration. The FDA has determined that such clearance or approval is not necessary. This test is used for clinical purposes. It should not be regarded as investigational or for research. . 01 Pathologist provided ICD-10: N63.10 . 01 CPT . 092758, Q71443, G29334 Specimen Comment: A courtesy copy of this report has been sent to [facility]ology Performed at: [address] [id number] MD Adria Dunn MD Phone: [phone]
== END ==
PROVIDERS: PCP Physician Assistant; Referring Provider Physician Assistant; Visit Provider Physician Assistant
DX: R92.8 Other abnormal and inconclusive findings on diagnostic imaging of breast (principal); N60.81 Other benign mammary dysplasias of right breast; N60.21 Fibroadenosis of right breast; N60.01 Solitary cyst of right breast; R92.321 Mammographic fibroglandular density, right breast
CPT/HCPCS: 19083; 77065

== ENCOUNTER → 2024-12-21 08:19 | Outpatient (CLI) | payer MEDICARE, OTHER, SELFPAY ==
--- NOTE | 2024-12-21 08:22 | DI.MG.S_ITS ---
MM screening mammo BI: 12/21/2024. BI-RADS: 2 CLINICAL: 69-year old female for bilateral screening mammogram. No Tyrer-Cuzick risk score calculation due to the patient's personal history of breast cancer. Patient reports a history of right breast carcinoma diagnosed at age 62. Status-post right lumpectomy with hormonal therapy. Current reported family history of breast cancer: mother and sister. The patient had a prior right breast biopsy. PRIOR EXAMS 02/04/2024, 12/25/2023, 11/18/2023, 11/14/2022, 11/13/2021, 11/12/2020, 11/11/2019, 11/03/2017. MAMMOGRAPHY TECHNIQUE: 2D and 3D (tomosynthesis) digital mammographic views obtained, with additional images as needed for full coverage. Current study was also evaluated with a Computer Aided Detection (CAD) system. DENSITY A. The breasts are almost entirely fatty. MAMMOGRAPHY FINDINGS Right: Biopsy marker present on the right. There are no suspicious masses, calcifications, or other findings in the breast. Left: No suspicious mass, asymmetry, microcalcification, or other abnormality seen. No significant change from comparison. IMPRESSION: Right * No evidence of malignancy with benign findings. Left * No evidence of malignancy. RECOMMENDATIONS Bilateral * Annual screening mammography. OVERALL ASSESSMENT CATEGORY BI-RADS-2: Benign. The [employer] recommends annual screening mammography beginning at age 40 for women with average risk of breast cancer. ELECTRONICALLY SIGNED: Mariela Cuadra M.D. on 12/24/2024 at 01:07:19 PM PT Interpreting Station ID: [id number]
== END ==
PROVIDERS: PCP Physician Assistant; Referring Provider Physician Assistant; Visit Provider Physician Assistant
DX: Z12.31 Encounter for screening mammogram for malignant neoplasm of breast (principal); R92.313 Mammographic fatty tissue density, bilateral breasts; Z85.3 Personal history of malignant neoplasm of breast; Z80.3 Family history of malignant neoplasm of breast
CPT/HCPCS: 77063; 77067